=== PATIENT | female | born 1990 | race Two or more races ===

== ENCOUNTER 2022-01-18 12:04 | Emergency (ER) | payer BC ==
[2022-01-18] MEDS ORDERED: AMLODIPINE-OLM1 EAC2 PO (12:59)
== END 2022-01-18 22:41 | disposition home or self-care (01) ==
LOC: ER 12:04
DX: K29.70 Gastritis, unspecified, without bleeding (principal); F41.9 Anxiety disorder, unspecified; I10 Essential (primary) hypertension; Z88.0 Allergy status to penicillin